=== PATIENT | female | born 1985 | race Caucasian/White ===

== ENCOUNTER 2017-04-26 06:17 | Observation (INO) | payer MEDICAID ==
[~2017-04-26 06:17] MED LIST: ALBU1AER INH; ESTR2TAB PO; FAMO1TAB37 PO; LEVA500T33 PO; MONT10TA2 PO; PRED50TA PO; PROG200C PO; ZOFR4TAB3 SL
[2017-04-26] MEDS ORDERED: ACETAMINOPHEN 325 MG TAB PO PRN (06:45)
[2017-04-26] MEDS ORDERED: BISACODYL 10 MG SUPP RECTAL PRN (06:45)
[2017-04-26] MEDS ORDERED: NALOXONE HCL 0.4 MG/ML AMP IV PUSH PRN ×2 (06:45→11:30)
[2017-04-26] MEDS ORDERED: LACTULOSE SYRUP 20 GM/30 ML CUP PO PRN (06:45)
[2017-04-26] MEDS ORDERED: MAGNESIUM HYDROXIDE SUSP 30 ML CUP PO PRN (06:45)
[2017-04-26] MEDS ORDERED: SENNOSIDES 8.6 MG TAB PO PRN (06:45)
[2017-04-26] MEDS ORDERED: SODIUM CHLORIDE 0.9% FLUSH 10 ML FLUSH IV FLUSH PRN (06:45)
[2017-04-26] MEDS ORDERED: SODIUM CHLORIDE 0.9% FLUSH 10 ML FLUSH IV FLUSH SCH (09:00)
[2017-04-26] MEDS ORDERED: DOCUSATE SODIUM 50 MG/SENNA 8.6 MG TAB PO SCH (09:00)
[2017-04-26 09:58] VITALS: BP 99/54; PULSE 97; RESP 18; TEMP 97.9; O2SAT 98
[2017-04-26] MEDS ORDERED: SODIUM CHLOR 0.9% 1000 ML INJ 1,000 ML IV SCH (10:00)
[2017-04-26] MEDS ORDERED: ENOXAPARIN SODIUM 40 MG/0.4 ML SYRINGE SQ SCH (11:00)
[2017-04-26] MEDS ORDERED: PIPERACIL-TAZO 3.375 GM PREMIX 50 ML IV SCH (11:00)
[2017-04-26] MEDS ORDERED: D5-1/2 NS + KCL 20 MEQ INJ 1,000 ML IV SCH (11:15)
[2017-04-26] MEDS ORDERED: SODIUM CHLOR 0.9% 1000 ML INJ 1,000 ML IV ONE (11:15)
[2017-04-26] MEDS ORDERED: POTASSIUM CHLORIDE 20 MEQ CONTROLLED RELEASE TAB PO ONE (11:15)
--- NOTE | 2017-04-26 11:24 | HHI.HP ---
HPI Service [facility] Primary Care Physician No Primary Care Physician Admission Diagnosis Diagnoses: Chief Complaint: abdominal pain/nausea/vomiting Travel History International Travel<30 Days: No Contact w/Intl Traveler <30 Da: No Traveled to Known Affected Are: No History of Present Illness Written by Shakira Berumen, acting as scribe for Dr. Waterman on 04/26/17 at 11: 23. 31-year-old female with history of ovarian cancer s/p hysterectomy presents with a 1 week history of abdominal pain, nausea/vomiting. The patient reports over the past week she has been having intermittent diffuse sharp abdominal pains, waxes and wanes in severity. She states the pain would become intense, she would vomit, and then pain subsides. Denies fevers, but does report chills. She reports 3 solid nonbloody bowel movements yesterday, then 1 diarrhea episode this morning. She denied any chest pain prior to presenting to the hospital, but now has some chest discomfort after the NG tube was placed. Her son is 5 and did get sick last night, however no other recent sick contacts. She denies eating anything out of the ordinary. She was on amoxicillin 1-2 months ago for dental infection. She denies any other medical complaints including no cough, shortness of breath, or dysuria. Review of Systems Except as stated in HPI: all other systems reviewed are Neg Past Family Social History Past Medical History Ovarian cancer Past Surgical History x2 Cholecystectomy Appendectomy Partial hysterectomy Reported Medications Reported Meds & Active Scripts Active Pepcid (Famotidine) 20 Mg Tab 20 Mg PO BID Zofran Odt (Ondansetron Odt) 4 Mg Tab 4 Mg SL Q6HR PRN Reported Progesterone Micronized 200 Mg Cap 200 Mg PO HS Allergies: Coded Allergies: diatrizoate meglumine (Unverified Allergy, Severe, Hives, itching, ) SEVERE REACTION ; SEVERE ITCHING ; BURNING ( IF BODY ON FIRE); BREATHING DIFFICULTY gadobenic acid (Unverified Allergy, Severe, Hives, itching, 04/26/17) SEVERE REACTION ; SEVERE ITCHING ; BURNING ( IF BODY ON FIRE); BREATHING DIFFICULTY gadodiamide (Unverified Allergy, Severe, Hives, itching, 04/26/17) SEVERE REACTION ; SEVERE ITCHING ; BURNING ( IF BODY ON FIRE); BREATHING DIFFICULTY gadoteridol (Unverified Allergy, Severe, Hives, itching, 04/26/17) SEVERE REACTION ; SEVERE ITCHING ; BURNING ( IF BODY ON FIRE); BREATHING DIFFICULTY iodine (Unverified Allergy, Severe, Rash, 04/26/17) iodixanol (Unverified Allergy, Severe, Hives, itching, 04/26/17) SEVERE REACTION ; SEVERE ITCHING ; BURNING ( IF BODY ON FIRE); BREATHING DIFFICULTY potassium iodide (Unverified Allergy, Severe, Rash, 04/26/17) povidone-iodine (Unverified Allergy, Severe, Rash, 04/26/17) sodium iodide (Unverified Allergy, Severe, Rash, 04/26/17) sodium iodide (Unverified Allergy, Severe, Rash, 04/26/17) iohexol (Unverified Allergy, Intermediate, Hives, 04/26/17) NEEDS PREMEDS Active Ordered Medications Current Medications Medications (Trade) Dose Ordered Sig/Desmond Route Start Time Stop Time Status Last Admin Sodium Chloride 1,000 ml @ 100 mls/hr Q10H IV 04/26/17 10:00 04/26/17 10:36 (NS Flush) 2 ml UNSCH PRN IV FLUSH 04/26/17 06:45 (NS Flush) 2 ml BID IV FLUSH 04/26/17 09:00 04/26/17 10:36 (Tylenol) 650 mg Q4H PRN PO 04/26/17 06:45 (Zofran Inj) 4 mg Q4H PRN IVP 04/26/17 06:45 (Lovenox Inj) 40 mg Q24H SQ 04/26/17 11:00 (Narcan Inj) 0.4 mg UNSCH PRN IV PUSH 04/26/17 06:45 (Elana-Colace) 1 tab BID PO 04/26/17 09:00 (Milk Of Magnesia Liq) 30 ml Q12H PRN PO 04/26/17 06:45 (Senokot) 17.2 mg Q12H PRN PO 04/26/17 06:45 (Dulcolax Supp) 10 mg DAILY PRN RECTAL 04/26/17 06:45 (Lactulose Liq) 30 ml DAILY PRN PO 04/26/17 06:45 Piperacillin Sod/ Tazobactam Sod 50 ml @ 100 mls/hr Q8H IV 04/26/17 11:00 04/26/17 10:36 Potassium Chloride/Dextrose/ Sod Cl 1,000 ml @ 125 mls/hr Q8H IV 04/26/17 11:15 UNV (KCl) 20 meq ONCE ONCE PO 04/26/17 11:15 04/26/17 11:16 UNV Sodium Chloride 1,000 ml @ 999 mls/hr BOLUS ONCE IV 04/26/17 11:15 04/26/17 12:15 UNV Family History Mother with heart disease and diabetes Father with heart disease, first heart attack in his 40s Social History Smokes tobacco, 4-5 cigarettes daily since she was a teenager Social alcohol use Denies any illicit drug use 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 SKIN: Warm and dry. No rash. HEAD: Normocephalic. Atraumatic. EYES: Pupils equal and round. No scleral icterus. No injection or drainage. ENT: No nasal bleeding or discharge. Mucous membranes pink and moist. NECK: Supple. Trachea midline. CARDIOVASCULAR: Regular rate and rhythm. S1, S2 noted. No murmur appreciated. RESPIRATORY: No accessory muscle use. Clear to auscultation. Breath sounds equal bilaterally. GASTROINTESTINAL: Abdomen soft, non-tender, nondistended. Normoactive bowel sounds x4. MUSCULOSKELETAL: No obvious deformities. Extremities without clubbing, cyanosis , or edema. NEUROLOGICAL: Awake and alert. No obvious cranial nerve deficits. Motor grossly within normal limits. 5/5 muscle strength in bilateral upper and lower extremities. Normal speech. PSYCHIATRIC: Appropriate mood and affect; insight and judgment normal. Imaging CT abd/pelvis 04/26/17 shows no acute abnormalities. Caprini VTE Risk Assessment Caprini VTE Risk Assessment: No/Low Risk (score <= 1) Caprini Risk Assessment Model Point Value = 1 Point Value = 2 Point Value = 3 Point Value = 5 Age 41-60 Minor surgery BMI > 25 kg/m2 Swollen legs Varicose veins or History of unexplained or recurrent spontaneous Oral contraceptives or hormone replacement Sepsis (< 1 month) Serious lung disease, including pneumonia (< 1 month) Abnormal pulmonary function Acute myocardial infarction Congestive heart failure (< 1 month) History of inflammatory bowel disease Medical patient at bed rest Age 61-74 Arthroscopic surgery Major open surgery (> 45 min) Laparoscopic surgery (> 45 min) Malignancy Confined to bed (> 72 hours) Immobilizing plaster cast Central venous access Age >= 75 History of VTE Family history of VTE Factor V Leiden Prothrombin [id number] Lupus anticoagulant Anticardiolipin antibodies Elevated serum homocysteine Heparin-induced thrombocytopenia Other congenital or acquired thrombophilia Stroke (< 1 month) Elective arthroplasty Hip, pelvis, or leg fracture Acute spinal cord injury (< 1 month) Prophylaxis Regimen Total Risk Factor Score Risk Level Prophylaxis Regimen 0-1 Low Early ambulation 2 Moderate Order ONE of the following: *Sequential Compression Device (SCD) *Heparin 5000 units SQ BID 3-4 Higher Order ONE of the following medications: *Heparin 5000 units SQ TID *Enoxaparin/Lovenox 40 mg SQ daily (WT < 150 kg, CrCl > 30 mL/min) *Enoxaparin/Lovenox 30 mg SQ daily (WT < 150 kg, CrCl > 10-29 mL/min) *Enoxaparin/Lovenox 30 mg SQ BID (WT < 150 kg, CrCl > 30 mL/min) AND/OR *Sequential Compression Device (SCD) 5 or more Highest Order ONE of the following medications: *Heparin 5000 units SQ TID (Preferred with Epidurals) *Enoxaparin/Lovenox 40 mg SQ daily (WT < 150 kg, CrCl > 30 mL/min) *Enoxaparin/Lovenox 30 mg SQ daily (WT < 150 kg, CrCl > 10-29 mL/min) *Enoxaparin/Lovenox 30 mg SQ BID (WT < 150 kg, CrCl > 30 mL/min) AND *Sequential Compression Device (SCD) Assessment and Plan Problem List: (1) Gastroenteritis ICD Code: K52.9 - Noninfective gastroenteritis and colitis, unspecified Status: Acute Assessment and Plan 31-year-old female with history of ovarian cancer s/p hysterectomy presents with a 1 week history of abdominal pain, nausea/vomiting. Transferred from [facility] ER. Abdominal Pain/Nausea/Vomiting: suspect Gastroenteritis. Symptoms ongoing x1week. CT abd/pelvis images reviewed, no acute findings. -Check UDS -with recent antibiotic use, check C.difficile PCR -check stool cultures -check for [place] virus -Continue NG tube to suction -Started on antibiotics with IV Zosyn -Continue supportive treatment with IVF, antiemetics, and pain control with Alexander and IV morphine prn -Keep NPO for now -Consider GI consult if no improvement Hypokalemia: K 3.4. Suspect secondary to recent vomiting -given IV KCl replacement DVT Prophylaxis: Lovenox sq Code Status Full Code Discussed Condition With Patient, CDU RN Shakira Berumen PA-C Apr 26, 2017 11:24
[2017-04-26] MEDS ORDERED: MORPHINE SULFATE 4 MG/ML INJ IV PUSH PRN ×2 (11:30)
[2017-04-26] MEDS ORDERED: ACETAMINOPHEN/HYDROcodone 325 MG/5 MG TAB PO PRN (11:30)
[2017-04-26] MEDS ORDERED: ACETAMINOPHEN/HYDROcodone 325 MG/7.5 MG TAB PO PRN (11:30)
[2017-04-26] MEDS: ONDANSETRON HCL 4 MG/2 ML VIAL IVP PRN ×2 (11:47→16:00)
[2017-04-26 13:00] VITALS: BP 87/48; PULSE 94; RESP 16; TEMP 99.3; O2SAT 97
[2017-04-26 15:57] VITALS: BP 117/63; PULSE 103; RESP 20; TEMP 98.9; O2SAT 98
[2017-04-26 19:19] LABS: C. DIFF EPI 027 PRESUMPTIVE NEGATIVE (NEGATIVE)
[2017-04-27] MEDS ORDERED: REMOVE OLD PATCH T-DERMAL SCH (09:00)
[2017-04-27] MEDS ORDERED: NICOTINE 14 MG/24 HR PATCH T-DERMAL SCH (09:00)
== END 2017-04-26 20:00 | disposition left against medical advice (07) ==
LOC: NEDDLT 06:17 → NEPGCP 09:42 → UNDOADMOB 09:42 → UNDODISOB 20:00
PROVIDERS: ADMIT Internal Medicine; ATTEND Internal Medicine
DX: K52.9 Noninfective gastroenteritis and colitis, unspecified (principal); Z90.710 Acquired absence of both cervix and uterus; Z85.43 Personal history of malignant neoplasm of ovary; F17.210 Nicotine dependence, cigarettes, uncomplicated; E87.6 Hypokalemia
CPT/HCPCS: 43753; 74176; 80053; 80307; 81001; 83605; 83690; 85025; 87493; 87506; 87804; 96361; 96365; 96366; 96372; 96374; 96375; 96376; 99285; G0378; J1170; J1200; J1650; J2060; J2405; J2543; J2765; J3480; J7030